=== PATIENT | male | born 1985 | race Caucasian/White ===

== ENCOUNTER 2025-02-03 19:08 | Emergency (ER) | payer OTHER, SELFPAY ==
[2025-02-03 19:20] VITALS: BP 115/96; PULSE 83; RESP 16; TEMP 36.3; O2SAT 98
--- OUTSIDE RECORDS SUMMARY | 2025-02-03 21:39 | XMS_ITS | Encounter Summary ---
Author Organization [facility] Address [address] [place] [address] Care Team Providers Care Business Assistant Name Role Phone Alexandr Sheppard DO Primary Care Provider + Vernon Barajas MD Unavailable Fany Bender MD Unavailable [phone] Alexandr Sheppard DO Unavailable [phone] Jayde Esquivel RN Unavailable [phone] Elena Benson RN Unavailable Unavailable Encounter Details Date Type Department Care Team (Late st Contact Info) Description 12/05/2024 Results Follow-Up [facility] - Family Medicine [address] [place] [phone] [place] [address] [place] [id number] Social History Tobacco Use Types Packs/Day Years Used Date Smoking Tobacco: Never Smokeless Tobacco: Never Alcohol Use Standard Drinks/Week Comments Yes 0 (1 standard drink = 0.6 oz pur e alcohol) intermittent relapse AUDIT-C Answer Date Recorded Q1: How often do you have a drink containing alcohol? Never 10/13/2024 Q2: How many drinks containi ng alcohol do you have on a typical day when you are drinking? Patient does not drink Q3: How often do you have si x or more drinks on one occasion? Never 10/13/2024 Overall Financial Resource Strain (CARDIA) Answe r Date Recorded How hard is it for you to pa y for the very basics like food, housing, medical care, and heating? Not hard at all 10/14/2024 PHQ-2 Answer Date Recorded Patient Health Questionnaire-2 Score 2 03/23/2024 [facility] Occup[facility] - Occupational Stress Questionnaire Answer Date Recorded Do you feel stress - tense, restless, nervous, or anxious, or unable to sleep at night because your mind is troubled all the time - these days? Not at all 10/14/2024 Hunger Vital Sign Answer Date Recorded Within the past 12 months, y ou worried that your food would run out before you got the money to buy more. Never true 10/15/19 25 Within the past 12 months, t he food you bought just didn't last and you didn't have money to get more. Never true 10/14/2024 PRAPARE - Transportation Answer Date Re corded In the past 12 months, has l ack of transportation kept you from medical appointments or from getting medications? No 09/30 In the past 12 months, has l ack of transportation kept you from meetings, work, or from getting things needed for daily living? No 10/14/2024 Housing Stability Vital Sign Answer Florencio e Recorded In the last 12 months, was t here a time when you were not able to pay the mortgage or rent on time? No 10/14/2024 In the past 12 months, how m any times have you moved where you were living? 0 10/14/2024 At any time in the past 12 m [facility], were you homeless or living in a nursing home (including now)? 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 Answer Date of Assessment Author No 10/14/2024 10:46 AM CDT Gloria Mclain RN * Is person blind or have serious difficulty seeing? Answer Date of Assessment Author No 10/14/2024 10:46 AM Gloria Levin RN * Does person have serious difficulty walking/climbing stairs? Answer Date of Assessment Author No 10/14/2024 10:46 AM Gloria Levin RN * Does person have difficulty dressing/bathing? Answer Date of Assessment Author No 10/14/2024 10:46 AM Gloria Levin RN * Does person have difficulty doing errands alone? Answer Date of Assessment Author No 10/14/2024 10:46 AM Gloria Levin RN documented as of this encounter Mental Status * Does person have difficulty concentrating/remembering/making decisions? Answer Entry Date Author No 10/14/2024 10:46 AM Gloria Levin RN documented in this encounter Plan of Treatment Upcoming Encounters Date Type Department Care Team (Late st Contact Info) Description 02/06/2025 10:30 AM STATIONARY ENGINEER Office Visit [facility] - Family Medicine [address] [place] [phone] Josh Marquez, PARosaleeC [address] [place] [phone] documented as of this encounter Visit Diagnoses Not on filedocumented in this encounter Care Teams Business Assistant Relationship Specialty Start Date End Date Alexandr Sheppard DO [address] [place] [id number] PCP - General Family Medicine 09/08/18 Alexandr Sheppard DO [address] [place] [phone] PCP - Attributed-[employer] 05/31/24 01/17/25 Vernon Barajas MD [address] [place] [id number] Gastroenterology 11/16/20 [place] [address] [place] [address] Anesthesiology-Pain Management 09/19/21 Jayde Esquivel, RN [address] [address] Hot Dimpling Machine OperatorRecordings Librarian 01/20/25 01/23/25 Elena Benson, hyperbaric technician 01/23/25 01/24/25 documented as of this encounter
== END 2025-02-03 21:58 | disposition left against medical advice (07) ==
PROVIDERS: Emergency Provider Registered Nurse; PCP Pediatrics
DX: F10.90 Alcohol use, unspecified, uncomplicated (principal)
CPT/HCPCS: 99199